=== PATIENT | male | born 1980 | race Caucasian/White ===

== ENCOUNTER 2021-12-31 22:27 | Emergency (ER) | payer MEDICAID ==
[~2021-12-31] VITALS: Ht 170.2 cm; Wt 94.3 kg
[2021-12-31 23:45] LABS: Basophils # (auto) 0 10 ^3/uL (0-0.2); Eosinophils # (auto) 0 10 ^3/uL (0-0.8); Eosinophils % (auto) 0.5 % (0.0-7.0); Monocytes # (auto) 0.5 10 ^3/uL (0-1.3); Neutrophils # (auto) 4.5 10 ^3/uL (1.6-8.6)
[2021-12-31 23:47] LABS: Basophils % (auto) 0.2 % (0.0-2.0); Hematocrit 35.2 % (41.0-53.0); Hemoglobin 12.2 g/dL (13.5-17.5); Lymphocytes # (auto) 1.6 10 ^3/uL (0.4-5.4); Lymphocytes % (auto) 24.3 % (10.0-50.0); Mean Corpuscular Hemoglobin 30.7 pg (28.0-32.0); Mean Corpuscular Hgb Conc. 34.6 g/dL (32.0-36.0); Mean Corpuscular Volume 88.8 fL (80.0-100.0); Monocytes % (auto) 7.6 % (0.0-12.0); Neutrophils % (auto) 67.4 % (37.0-80.0); Nucleated Red Blood Cells % 0.1 %; Red Blood Cells 3.96 10^6/uL (4.5-5.90); Red Cell Distribution Width 14.9 % (11.8-14.3); White Blood Cell 6.6 10^3/uL (4.4-10.8)
[2022-01-01 00:14] LABS: Albumin 2.9 g/dL (3.4-5.0); Anion Gap 8 (5-15); Blood Urea Nitrogen 16 mg/dL (7-18); Calcium 8.4 mg/dL (8.5-10.1); Carbon Dioxide 24 mmol/L (21-32); Chloride 97 mmol/L (98-107); Glucose 89 mg/dL (74-106); Potassium 4.1 mmol/L (3.5-5.1); Sodium 129 mmol/L (136-145)
[2022-01-01 00:15] LABS: Acetaminophen < 2.0 ug/mL (10-30); Salicylate < 1.7 mg/dL (2.8-20.0)
[2022-01-01 00:16] LABS: BUN/Creatinine Ratio 22.9; GFR African American 161 mL/min; GFR Non-African American 133 mL/min
[2022-01-01 00:33] LABS: Alanine Aminotransferase 25 U/L (16-61); Alkaline Phosphatase 59 U/L (45-117); Aspartate Aminotransferase 22 U/L (15-37); Bilirubin, Total 0.2 mg/dL (0.2-1.0); Blood Alcohol < 3.0 mg/dL (0-5); Total Protein 5.7 g/dL (6.4-8.2)
[2022-01-01 05:24] LABS: Alcohol, Urine < 3.0 mg/dL (0-10); Amphetamine Screen, Urine NEGATIVE (NEGATIVE); Barbiturate Scree,Urine NEGATIVE (NEGATIVE); Benzodiazephine Screen, Urine NEGATIVE (NEGATIVE); Cannabinoid Screen, Urine NEGATIVE (NEGATIVE); Cocaine Screen, Urine NEGATIVE (NEGATIVE); Opiate Scree,Urine NEGATIVE (NEGATIVE); Phencyclidine Screen, Urine NEGATIVE (NEGATIVE)
[2022-01-01 05:33] LABS: Urine Bacteria NONE SEEN /hpf (None Seen); Urine Blood 1+ /uL (Negative); Urine Specific Gravity 1.017 (1.001-1.035); Urine WBC 1 /hpf (0 - 3)
[2022-01-03] MEDS ORDERED: LORazepam 0.5 MG TAB PO ONE (15:45)
[2022-01-03] MEDS ORDERED: LORazepam 2MG/ML-1ML VIAL IM ONE (21:15)
[2022-01-03] MEDS ORDERED: HALOPERIDOL LACTATE 5 MG/ML INJ VIAL IM ONE (21:15)
[2022-01-04] MEDS ORDERED: LORazepam 0.5 MG TAB PO ONE (05:45)
[2022-01-04] MEDS ORDERED: LORazepam 0.5 MG TAB ONE (05:57)
[2022-01-04 10:40] VITALS: BP 94/69
== END 2022-01-04 15:55 | disposition home or self-care (01) ==
LOC: EDBD 22:27 → ER 22:27
DX: R45.851 Suicidal ideations (principal); J45.909 Unspecified asthma, uncomplicated
CPT/HCPCS: 36415; 80053; 80307; 80320; 80329; 81001; 85025; 96372

== ENCOUNTER 2022-02-23 14:08 | Emergency (ER) | payer MEDICAID ==
[~2022-02-23] VITALS: Ht 170.2 cm; Wt 74.8 kg
[2022-02-23 15:39] LABS: Basophils # (auto) 0 10 ^3/uL (0-0.2); Basophils % (auto) 0.3 % (0.0-2.0); Eosinophils # (auto) 0 10 ^3/uL (0-0.8); Eosinophils % (auto) 0.1 % (0.0-7.0); Hematocrit 48.2 % (41.0-53.0); Hemoglobin 16.3 g/dL (13.5-17.5); Lymphocytes % (auto) 15.6 % (10.0-50.0); Mean Corpuscular Hemoglobin 31.1 pg (28.0-32.0); Mean Corpuscular Hgb Conc. 33.9 g/dL (32.0-36.0); Mean Corpuscular Volume 91.7 fL (80.0-100.0); Monocytes # (auto) 0.5 10 ^3/uL (0-1.3); Monocytes % (auto) 8.1 % (0.0-12.0); Neutrophils # (auto) 4.8 10 ^3/uL (1.6-8.6); Neutrophils % (auto) 75.9 % (37.0-80.0); Nucleated Red Blood Cells % 0.1 %; Red Blood Cells 5.26 10^6/uL (4.5-5.90); Red Cell Distribution Width 15.1 % (11.8-14.3); White Blood Cell 6.4 10^3/uL (4.4-10.8)
[2022-02-23 15:57] LABS: Alanine Aminotransferase 23 U/L (16-61); Albumin 3.3 g/dL (3.4-5.0); Anion Gap 7 (5-15); Aspartate Aminotransferase 15 U/L (15-37); BUN/Creatinine Ratio 23.1; Blood Alcohol < 3.0 mg/dL (0-5); Blood Urea Nitrogen 21 mg/dL (7-18); Calcium 9.3 mg/dL (8.5-10.1); Carbon Dioxide 26 mmol/L (21-32); Chloride 107 mmol/L (98-107); GFR African American 119 mL/min; GFR Non-African American 98 mL/min; Glucose 88 mg/dL (74-106); Potassium 3.9 mmol/L (3.5-5.1); Sodium 140 mmol/L (136-145)
[2022-02-23 15:59] LABS: Alkaline Phosphatase 71 U/L (45-117); Bilirubin, Total 0.3 mg/dL (0.2-1.0); Total Protein 7.2 g/dL (6.4-8.2)
[2022-02-23 16:02] LABS: Acetaminophen < 2.0 ug/mL (10-30); Salicylate < 1.7 mg/dL (2.8-20.0)
[2022-02-24 04:00] LABS: Amphetamine Screen, Urine NEGATIVE (NEGATIVE); Barbiturate Scree,Urine NEGATIVE (NEGATIVE); Benzodiazephine Screen, Urine NEGATIVE (NEGATIVE); Cannabinoid Screen, Urine NEGATIVE (NEGATIVE); Cocaine Screen, Urine NEGATIVE (NEGATIVE); Opiate Scree,Urine NEGATIVE (NEGATIVE); Phencyclidine Screen, Urine NEGATIVE (NEGATIVE)
[2022-02-24] MEDS ORDERED: LORazepam 0.5 MG TAB PO ONE (05:45)
[2022-02-24 19:02] VITALS: BP 113/82
== END 2022-02-24 19:09 | disposition home or self-care (01) ==
LOC: ER 14:08 → EDBD 14:08 → ER 02-24 19:08
DX: G80.9 Cerebral palsy, unspecified (principal); J45.909 Unspecified asthma, uncomplicated
CPT/HCPCS: 36415; 71045; 80053; 80307; 80320; 80329; 85025; 93005